=== PATIENT | female | born 1970 | race Caucasian/White ===

== ENCOUNTER 2023-12-19 13:39 | Emergency (ER) | payer OTHER, SELFPAY ==
--- NOTE | ~2023-12-19 | XR_ITS ---
EXAMINATION: XR ankle LT 2V, XR foot LT min 3V DATE: 12/19/2023 14:45 INDICATION: Lateral left foot and ankle pain post fall TECHNIQUE: 1. Anteroposterior, mortise, additional oblique and lateral view of the left ankle were obtained. 2. Dorsoplantar, two oblique and lateral views of the left foot were obtained. COMPARISON: None. FINDINGS: Alignment of the left foot and ankle is normal. No fracture. Mild polyarticular osteoarthritis at the left ankle and many of the joints throughout the left foot most prominent at the first metatarsophal angeal joint. No ankle joint effusion. Moderate-sized Achilles and plantar calcaneal spurs. Additiona l small enthesophyte at the lateral tuberosity of the fifth metatarsal. The soft tissues are unremark able. IMPRESSION: 1. No acute osseous abnormality. Left ureter ankle. 2. Degenerative skeletal changes including mild polyarticular osteoarthritis at the left foot and ank le and scattered enthesophytes. Reviewed, dictated and finalized at location A. IMPRESSION: 1. No acute osseous abnormality. Left ureter ankle. 2. 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
[2023-12-19 14:08] VITALS: BP 103/66; PULSE 80; RESP 18; TEMP 36.1; O2SAT 98
--- NOTE | 2023-12-19 14:38 | ED_ITS ---
HPI - Extremity Injury (Lower) General Chief Complaint: Extremity Injury, Lower Stated Complaint: Left Ankle Injury Time Seen by Provider: 12/19/23 14:26 Source: patient, RN notes reviewed and old records reviewed Mode of arrival: ambulatory Limitations: no limitations History of Present Illness HPI Narrative: 53 year old female who presents to [facility] care with complaints of left ankle injury which occurred today at [address] lot at [place] after going to [email or web address]. Patient states that she stepped in a puddle and there was hole which caved in she states that she twisted her ankle and went down on her knee. Patient reports pain to the lateral aspect of her left ankle with no acute swelling or bruising noted painful movement reported, does admit to some peripheral neuropathy to feet. Patient has no reported pain to knees or any swelling or abrasions. MD complaint: ankle injury, fall and other (pain left foot) Onset (ago): hour(s) (1230 today) Type of Injury: other (twisted left ankle) Place: street/outdoors (parking lot [place] had been in [employer]) Severity scale (1-10): 4 Exacerbating factors: weight bearing and movement Treatments prior to arrival: other (none) Related Data Home Medications Medication Instructions Recorded Confirmed gabapentin 600 mg tablet 600 mg DIRECTED 12/19/23 12/19/23 methocarbamol 500 mg tablet 500 mg DIRECTED 12/19/23 12/19/23 Allergies Allergy/AdvReac Type Severity Reaction Status Date / Time duloxetine [From Cymbalta] Allergy Severe Anaphylaxis Verified 12/19/23 14:17 latex Allergy Severe Anaphylaxis Verified 12/19/23 14:17 morphine Allergy Severe Anaphylaxis Verified 12/19/23 14:17 polyethylene glycol 3350 Allergy Severe Anaphylaxis Verified 12/19/23 14:17 [From Miralax] adhesive Allergy Intermediate Blister Verified 12/19/23 14:17 Review of Systems Review of Systems: CONSTITUTIONAL: Denies fever, chills, or sweats. EYES: Denies visual changes, redness, or discharge. ENT: Denies rhinorrhea, congestion, sore throat, or otalgia. CARDIOVASCULAR: Denies chest pain, palpitations, or edema. RESPIRATORY: Denies cough or dyspnea. GASTROINTESTINAL: Denies abdominal pain, nausea, vomiting, or diarrhea. GENITOURINARY: Denies dysuria or hematuria. SKIN: Denies rash or itching. MUSCULOSKELETAL: Denies any acute back pain, reports left lateral ankle joint pain, or myalgia. NEUROLOGIC: Denies headache, numbness, or weakness.reports that she has some neuropathy to her foot PSYCHIATRIC: Denies anxiety or depression. All systems reviewed & are unremarkable except as noted in HPI and below PMFSH Past Medical History Medical History (Updated 12/24/23 @ 10:11 by Leonarda Dotson NP) Neurogenic thoracic outlet syndrome Neuropathy of both feet Surgical History Surgical History (Updated 12/24/23 @ 09:59 by Leonarda Dotson NP) H/O cervical spine surgery fusion History of back surgery Social History Social History (Updated 12/24/23 @ 09:59 by Leonarda Dotson NP) Smoking status: Never smoker Alcohol intake: unknown Substance use: unknown Living arrangements: with family Gender identity (if verbalized by the patient): Female Comments At time of signature, agree with nursing past medical, surgical, social and family history. There is no relevant family history pertinent to the presenting complaint Exam Narrative: GENERAL: Well-appearing, well-nourished, and in no acute distress. HEAD: Normocephalic, atraumatic. EYES: PERRLA and EOMI. ENT: Nares clear, no rhinorrhea or epistaxis. Mucous membranes moist. NECK: Supple.no lymphadenopathy CHEST: Clear to auscultation. No respiratory distress.SAO2 98% on room air HEART: Regular rate and rhythm. No murmur heard. Normal peripheral pulses. ABDOMEN: Soft, nontender, nondistended, normal active bowel sounds. EXTREMITIES: Normal range of motion. No edema noted to left foot or ankle reports pain to left lateral ankle with no obvious deformity, strong pedal pulse present. Pain reported to increase with movement and weight bearing SKIN: Warm, dry, no rash. NEURO: No focal deficits. Alert and oriented x3. Course Course Emergency Course: Patient is aware of diagnosis, understands and agrees to treatment plan.? Anticipatory guidance given.? Patient agrees to follow-up as directed and is aware of reasons to seek care at the emergency department. Portions of this record may have been created with voice recognition software Level of Care: Express Care Visit Vital Signs Vital signs: Vital Signs Temperature 36.1 C L 12/19/23 14:08 Pulse Rate 80 12/19/23 14:08 Respiratory Rate 18 12/19/23 14:08 Blood Pressure 103/66 12/19/23 14:08 Pulse Oximetry 98 12/19/23 14:08 Oxygen Delivery Room Air 12/19/23 14:08 Temperature 36.1 C L 12/19/23 14:08 Pulse Rate 80 12/19/23 14:08 Respiratory Rate 18 12/19/23 14:08 Blood Pressure 103/66 12/19/23 14:08 Pulse Oximetry 98 12/19/23 14:08 Oxygen Delivery Room Air 12/19/23 14:08 Reviewed MDM - Extremity Injury (Lower) Differential Diagnosis Differential diagnosis: Likely ankle sprain and strain, ankle fracture and other (foot sprain. left ankle pain) Medical Records Attestation: I reviewed the patient's medical records. Imaging Data My impression: no fractures noted of left foot or ankle some degenerative changes and enthesophytes Radiologist's impression: [facility] [place] [id number] XRay Report Signed Patient: Rachael Szymanski : 1970 MR#: [id number] Age: 53 Acct:[id number] Loc: [facility] ADM Date: 12/19/23Attending Dr: Ordering Physician: Leonarda Dotson APRN Date of Service: 12/19/23 Procedure(s): XR ankle LT 2V; XR foot LT min 3V Accession Number(s): [id number]; [id number] cc: Leonarda Dotson APRN~ EXAMINATION: XR ankle LT 2V, XR foot LT min 3V DATE: 12/19/2023 14:45 INDICATION: Lateral left foot and ankle pain post fall TECHNIQUE: 1. Anteroposterior, mortise, additional oblique and lateral view of the left ankle were obtained. 2. Dorsoplantar, two oblique and lateral views of the left foot were obtained. COMPARISON: None. FINDINGS: Alignment of the left foot and ankle is normal. No fracture. Mild polyarticular osteoarthritis at the left ankle and many of the joints throughout the left foot most prominent at the first metatarsophalangeal joint. No ankle joint effusion. Moderate-sized Achilles and plantar calcaneal spurs. Additional small enthesophyte at the lateral tuberosity of the fifth metatarsal. The soft tissues are unremarkable. IMPRESSION: 1. No acute osseous abnormality. Left ureter ankle. 2. 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 Reviewed, dictated and finalized at location A. Dictated By: Joel Carrasco MD 12/19/23 1446 Signed By: <Electronically signed by Joel Carrasco MD in OV> Critical Care Time Critical Care Time Critical Care Time: No Discharge Plan Discharge Clinical Impression: Strain of left ankle and foot Patient Disposition: Home, Self-Care Condition: Stable Instructions: Foot Sprain (ED), Ankle Strain (ED) Additional Instructions: Elastic wrap or orthopedic splint as directed for comfort for the next 5-7 days Tylenol for lesser pain Ibuprofen regularly for the next 2-3 days for the inflammation Follow-up with orthopedic surgeon if continued pain Follow-up with PCP if further problems or concerns Ice to the area 20-30 minutes 4-6 times a day Elevate above heart If your symptoms persist, change or worsen significantly before you can contact your personal physician then please, without delay, go to the emergency department for further evaluation. Follow-up with PCP in 7-10 days or sooner if needed Prescriptions: No Action methocarbamol 500 mg tablet 500 mg DIRECTED gabapentin 600 mg tablet 600 mg DIRECTED Follow-up/Referrals: PHYSICIAN NOT ON STAFF,NONSTAFF [Primary Care Provider] - Time of Disposition: 15:04 Quality [place] Coma Scale Eyes: Open Verbal: Oriented and Alert Motor: Follows Commands Zana Coma Total Score: 15
== END 2023-12-19 15:13 | disposition home or self-care (01) ==
PROVIDERS: Emergency Provider Registered Nurse
DX: S96.912A Strain of unspecified muscle and tendon at ankle and foot level, left foot, initial encounter (principal); X58.XXXA Exposure to other specified factors, initial encounter
CPT/HCPCS: 73600; 73630; 99203; G0463